=== PATIENT | female | born 1970 | race Caucasian/White ===

== ENCOUNTER 2018-02-18 09:14 | Emergency (ER) | payer OTHER ==
[2018-02-18 09:56] VITALS: BP 138/82
[2018-02-18] MEDS ORDERED: NAPROXEN 250 MG TABLET PO STA (09:58)
[2018-02-18] MEDS ORDERED: METOCLOPRAMIDE 10 MG TABLET PO STA (09:58)
--- NOTE | 2018-02-18 10:14 | ED Physician Documentation ---
History of Present Illness - Stated complaint Stated Complaint: HEAD INJURY - Chief complaint Chief Complaint: General - Additonal information Additional information: 47-year-old female presents the emergency department after striking her head on a metal shelf earlier this morning. The patient reports a contusion to her scalp, head pain and nausea. The patient denies any loss of consciousness, confusion, motor weakness or vomiting. Symptoms are described as moderate. No other reports of trauma to her torso or extremities. No laceration. No attempts at symptom management Review of Systems Constitutional: denies: Fever Eyes: denies: Loss of vision Ears: denies: Loss of hearing Nose: denies: Congestion Throat: denies: Sore throat Cardiac: denies: Chest pain / pressure Respiratory: denies: Cough GI: reports: Nausea Skin: denies: Laceration (s) Musculoskeletal: reports: Neck pain Neurologic: reports: Headache PD PAST MEDICAL HISTORY - Past Medical History Cardiovascular: None Respiratory: None Endocrine/Autoimmune: None GI: C.difficile CADDIE: Ovarian cysts : None HEENT: None Psych: None Musculoskeletal: Chronic back pain Derm: None - Past Surgical History Past Surgical History: Yes General: Cholecystectomy Ortho: Spine surgery (cervical area) /CADDIE: section, Hysterectomy HEENT: Myringotomy (tubes), Tonsil/Adenoidectomy - Present Medications Home Medications: Ambulatory Orders Medication Instructions Recorded Confirmed Ondansetron Odt [Zofran] 4 mg TL Q6H PRN #10 tablet 03/29/15 02/07/16 Propranolol [Inderal] 40 mg PO BID #60 tablet 12/14/15 02/07/16 Citalopram [CeleXA] 10 mg PO DAILY 01/02/16 02/07/16 Clindamycin [Cleocin] 300 mg PO Q6H 10 Days capsule 02/05/16 02/07/16 Ibuprofen [Motrin] 800 mg PO Q8HR PRN 02/05/16 02/07/16 Ciprofloxacin HCl [Cipro] 500 mg PO BID #19 tablet 02/07/16 Hydrocodone/Acetaminophen [Vicodin 1 - 2 each PO Q6HR PRN #14 tablet 02/07/16 5-300 mg Tablet] Ketoconazole 1 film TP DAILY #1 cream..g. 02/07/16 Methocarbamol [Robaxin] 500 mg PO Q6H PRN #25 tablet 02/11/16 - Allergies Allergies/Adverse Reactions: Allergies Allergy/AdvReac Type Severity Reaction Status Date / Time Penicillins Allergy Intermediate Rash Verified 02/06/16 19:25 latex AdvReac Rash Verified 02/06/16 19:25 iv contrast Allergy Hives Uncoded 02/06/16 19:25 - Social History Does the pt smoke?: Yes Smoking Status: Current every day smoker Does the pt drink ETOH?: Yes Does the pt have substance abuse?: No - Immunizations Immunizations are current?: Yes - POLST Patient has POLST: No PD ED PE NORMAL - General General: Alert and oriented X 3, No acute distress - HEENT HEENT: PERRL, EOMI, Ears normal, Moist mucous membranes - Back Back: No CVA TTP, No spinal TTP, Other (The patient has paraspinal muscle tender ness, she has no tenderness along the cervical spinous processes. 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, No motor deficit, Normal speech Eye Opening: Spontaneous Motor: Obeys Commands Verbal: Oriented GCS Score: 15 - Psych Psych: Normal affect PD ED PE EXPANDED - HEENT HEENT: Ears normal (No hemotympanum or dawn signs) HEENT Visual: 1 - tenderness (Very small scalp contusion, no bogginess, no crepitus) Results - Vitals Vitals: Vital Signs - 24 hr 02/18/18 09:49 Temperature 36.9 C Heart Rate 73 Respiratory 16 Rate Blood Pressure 138/82 H O2 Saturation 98 Oxygen O2 Source Room air PD MEDICAL DECISION MAKING - ED course ED course: The patient sustained a head injury, there is no evidenceOn physical exam that would be suggestive of skull fracture or intracranial hemorrhage. Currently, I do not think a CT scan would be of much utility and the patient appears appropriate for discharge and ongoing outpatient management. I discussed with her the natural course of a head injury. I discussed warning signs and recommended returning to the emergency department immediately for worsening or any concerns. Departure - Departure Disposition: Home, Self Care Clinical Impression: Scalp contusion Qualifiers: Encounter type: initial encounter Qualified Code(s): S00.03XA - Contusion of scalp, initial encounter Closed head injury Qualifiers: Encounter type: initial encounter Qualified Code(s): S09.90XA - Unspecified injury of head, initial encounter Condition: Poor Instructions: ED Head Injury Closed Follow-Up: Porfirio Artis PA-C [Primary Care Provider] - Within 1 week Comments: Please return to the emergency department for worsening symptoms or any concerns.
== END 2018-02-18 10:20 | disposition home or self-care (01) ==
LOC: ED 09:14
DX: S00.03XA Contusion of scalp, initial encounter (principal); S09.90XA Unspecified injury of head, initial encounter; W22.09XA Striking against other stationary object, initial encounter; F17.200 Nicotine dependence, unspecified, uncomplicated
CPT/HCPCS: 99282; 99283; A9270

== ENCOUNTER 2023-10-21 18:51 | Outpatient (CLI) | payer OTHER | END 2023-10-21 23:59 | disposition critical access hospital (66) | LOC: EMS 18:51 | DX: M54.2 Cervicalgia (principal); M54.9 Dorsalgia, unspecified; V49.40XA Driver injured in collision with unspecified motor vehicles in traffic accident, initial encounter; Y92.413 State road as the place of occurrence of the external cause | CPT/HCPCS: A0425; A0429 ==

== ENCOUNTER 2023-10-21 19:06 | Emergency (ER) | payer OTHER ==
[2023-10-21] MEDS: CYCLOBENZAPRINE 10 MG TABLET PO STA (20:11)
[2023-10-21] MEDS: MELOXICAM 7.5 MG TABLET PO STA (20:11)
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
[2023-10-21 21:44] VITALS: BP 154/93; O2SAT 98
== END 2023-10-21 21:35 | disposition home or self-care (01) ==
LOC: EDUNIT# → ED 19:06
DX: S16.1XXA Strain of muscle, fascia and tendon at neck level, initial encounter (principal); V89.2XXA Person injured in unspecified motor-vehicle accident, traffic, initial encounter; Y92.410 Unspecified street and highway as the place of occurrence of the external cause; F17.200 Nicotine dependence, unspecified, uncomplicated; Z79.899 Other long term (current) drug therapy; Z91.040 Latex allergy status
CPT/HCPCS: 70450; 72125; 99283; 99284; A9270